=== PATIENT | male | born 1945 | race African-American/Black ===

== ENCOUNTER 2021-07-25 22:49 | Inpatient (IN) | payer OTHER, MEDICAID ==
[~2021-07-25] VITALS: Ht 177.8 cm; Wt 78.5 kg
[2021-07-25 22:49] VITALS: BP_SYST 171
--- NOTE | 2021-07-25 23:05 | NUR ---
ER Dr. Cerda at bedside examining patient.
--- NOTE | 2021-07-25 23:10 | NUR ---
Pt BIB BLS ambulance from [facility] due to generalized weakness and lower abd pain x1 hour prior to ED arrival. Pt arrived to ED in no acute distress, breathing adequately on RA.
[2021-07-26 00:37] LABS: BASOPHILS % (AUTO) 0.3 % (0.0-2.0); EOSINOPHILS % (AUTO) 0.3 % (0.0-4.0); HEMATOCRIT 28.7 % (36-54); HEMOGLOBIN 9.1 g/dL (14.0-18.0); LYMPHOCYTES # (AUTO) 0.6 K/uL (1.0-5.5); LYMPHOCYTES % (AUTO) 9.8 % (20.5-51.5); MEAN CORPUSCULAR HEMOGLOBIN 23 pg (27-31); MEAN CORPUSCULAR HGB CONC 32 % (32-36); MEAN CORPUSCULAR VOLUME 73 fL (79.0-98.0); MONOCYTES # (AUTO) 0.7 K/uL (0.0-1.0); MONOCYTES % (AUTO) 11.2 % (1.7-9.3); NEUTROPHILS % (AUTO) 78.4 % (40.0-70.0); PLATELET COUNT (AUTO) 239 K/uL (130-430); RED BLOOD CELL COUNT(AUTO) 3.94 MIL/uL (4.2-6.2); RED CELL DISTRIBUTION WIDTH 21.7 % (9.0-15.0); WHITE BLOOD COUNT (AUTO) 6.4 K/uL (4.8-10.8)
[2021-07-26 00:44] LABS: ANION GAP 7 (5-15); CALCIUM 8.3 mg/dL (8.4-11.0); CHLORIDE 104 mmol/L (98-107); CREATININE 1.07 mg/dL (0.55-1.30); GLUCOSE 121 mg/dL (70-99); POTASSIUM 3.7 mmol/L (3.5-5.1); SODIUM SERUM 139 mmol/L (136-145); UREA NITROGEN, BLOOD 22 mg/dL (8-21)
[2021-07-26 00:50] LABS: ALANINE AMINOTRANSFERASE 218 U/L (12-78); ALBUMIN 2.5 g/dL (3.4-4.8); ASPARTATE AMINOTRANSFERASE 43 U/L (10-37); TOTAL BILIRUBIN 0.4 mg/dL (0.0-1.0)
--- NOTE | 2021-07-26 02:15 | NUR ---
Urine collected and sent to lab.
[2021-07-26] MEDS ORDERED: cefTRIAXone 1 GM IVPB PREMIX 50 ML IV ONE (02:30)
[2021-07-26 02:50] LABS: BILIRUBIN,URINE NEGATIVE (NEGATIVE); BLOOD, URINE NEGATIVE (NEGATIVE); CLARITY/URINE CLEAR (CLEAR); GLUCOSE,URINE NEGATIVE (NEGATIVE); KETONES,URINE NEGATIVE (NEGATIVE); LEUKOCYTE ESTERASE ,URINE NEGATIVE (NEGATIVE); NITRITE, URINE NEGATIVE (NEGATIVE); PROTEIN URINE 1+ (NEGATIVE)
[2021-07-26 02:52] LABS: COLOR,URINE AMBER (YELLOW)
[2021-07-26] MEDS ORDERED: hydrALAZINE HCL 20 MG/ML VIAL IVP ONE (03:15)
--- NOTE | 2021-07-26 03:25 | NUR ---
Pt requesting meal; meal provided as per diet orders.
[2021-07-26] MEDS ORDERED: hydrALAZINE HCL 20 MG/ML VIAL ONE (03:35)
[2021-07-26] MEDS ORDERED: LORazepam 2 MG/ML VIAL IVP ONE (04:30)
--- NOTE | 2021-07-26 05:26 | NUR ---
Pt resting comfortably in bed, no acute signs of distress.
--- NOTE | 2021-07-26 07:00 | NUR ---
Admit bed requested Patient will be admitted to care of . Admitted to TELE unit. Diagnosis: R LUNG PNA Inpatient (Yes or No) Y Observation (Yes or No) Y Orientation concerns or request close to nursing station (Yes or No) N Covid Status : NEG From Home (Yes or if No enter name of facility) [facility]
--- NOTE | 2021-07-26 07:10 | NUR ---
REPORT RECEIVED FROM KYLAH MOISE FOR CONTINUING CARE
--- NOTE | 2021-07-26 07:30 | NUR ---
Medication reconciliation completed with information provided by [facility]. Any prior medication reconciliation on file was reviewed and corrected.
[2021-07-26] MEDS ORDERED: AMIO200T66 PO (07:33)
[2021-07-26] MEDS ORDERED: SSNOVOLOG SUBCUT (07:33)
[2021-07-26] MEDS ORDERED: DOCU-144 PO (07:33)
[2021-07-26] MEDS ORDERED: PRED20TA PO (07:33)
[2021-07-26] MEDS ORDERED: MAALOX PO (07:33)
[2021-07-26] MEDS ORDERED: LISI-652 PO (07:33)
[2021-07-26] MEDS ORDERED: HYDR-3917 PO (07:33)
[2021-07-26] MEDS ORDERED: NEU300 PO (07:33)
[2021-07-26] MEDS ORDERED: TAMS-11 PO (07:33)
[2021-07-26] MEDS ORDERED: HYDR-4037 PO (07:33)
[2021-07-26] MEDS ORDERED: ONDA4TAB55 PO (07:33)
[2021-07-26] MEDS ORDERED: BACL10TA PO (07:33)
[2021-07-26] MEDS ORDERED: FURO20TA4 PO (07:33)
[2021-07-26] MEDS ORDERED: MOM PO (07:33)
[2021-07-26] MEDS ORDERED: ACET325T53 PO (07:33)
[2021-07-26] MEDS ORDERED: CARV6.2554 PO (07:33)
[2021-07-26] MEDS ORDERED: LOVI40 SQ (07:33)
--- NOTE | 2021-07-26 08:00 | NUR ---
BREAKFAST TRAY PROVIDED TO PT
--- NOTE | 2021-07-26 11:30 | NUR ---
Patient will be admitted to care of DR. ALVARES. Admitted to TELE unit. Will go to room 133B. Belongings list completed. Complete and up to date summary report printed. SBAR report to be given at bedside with opportunity for questions.
--- NOTE | 2021-07-26 11:36 | NUR ---
INITIAL SHIFT REPORT RECEIVED FROM ER NURSE. PT RESTING W CLOSED EYES, TEMP 98.0F; RR 20-SAT 90-93% ON 3L; 140/76 , HR 67
[2021-07-26] MEDS ORDERED: HYDROcodone/ACETAMIN 5-325 MG TAB (NORCO/ VICODIN) PO PRN ×2 (12:00)
[2021-07-26] MEDS ORDERED: hydrALAZINE HCL 10 MG TABLET PO PRN (12:00)
[2021-07-26] MEDS ORDERED: BACLOFEN 10 MG TABLET PO PRN (12:00)
[2021-07-26] MEDS ORDERED: ACETAMINOPHEN 325 MG TABLET PO SCH (12:00)
[2021-07-26] MEDS ORDERED: NALOXONE HCL 0.4 MG/ML AMP (NARCAN) IVP PRN ×3 (12:00)
[2021-07-26] MEDS ORDERED: MILK OF MAGNESIA 30 ML UDC PO PRN (12:00)
[2021-07-26] MEDS ORDERED: ACETAMINOPHEN 325 MG TABLET PO PRN ×2 (12:00→12:15)
[2021-07-26] MEDS ORDERED: LORazepam 2 MG/ML VIAL IVP PRN (12:00)
--- NOTE | 2021-07-26 12:20 | NUR ---
CONSULTATION PAGED/CALLED Reason for Consultation: [] PNA Person Who was Notified: [] KATIE Consulting Physician: [] DR ACOSTA Lead Cargoman Specialty: [] ID Ordering Physician: [] DR BRASHER
--- NOTE | 2021-07-26 13:32 | NUR ---
CONSULTATION PAGED/CALLED Reason for Consultation: [] HYPERTENSION Person Who was Notified: [] JAE Consulting Physician: [] DR Loren BRASHER Deaf And Hard Of Hearing Teacher Specialty: [] CARDIO Ordering Physician: [] DR Derrell BRASHER
[2021-07-26] MEDS ORDERED: ONDANSETRON 4 MG ODT TAB TL PRN (13:45)
[2021-07-26] MEDS ORDERED: MAG-AL HYDROX/SIMETH 30 ML UDC PO PRN (13:45)
[2021-07-26] MEDS ORDERED: NORMAL SALINE 5 ML DISP.SYRIN IVF SCH (14:00)
[2021-07-26] MEDS ORDERED: ANT30 PO (14:14)
[2021-07-26] MEDS: GABAPENTIN 300 MG CAPSULE PO SCH ×3 (15:19→22:57)
[2021-07-26] MEDS: AZITHROMYCIN 500 MG in NS 250 ML IV SCH (15:19)
[2021-07-26] MEDS: cefTRIAXone 1 GM IVPB PREMIX 50 ML IV SCH (15:19)
[2021-07-26] MEDS: NORMAL SALINE 5 ML DISP.SYRIN IVF SCH ×2 (15:20→23:00)
--- NOTE | 2021-07-26 19:24 | NUR ---
ENDORSEMENT BEDSIDE SHIFT REPORT GIVEN TO NIGHT RN FOR CONTINUITY OF CARE
[2021-07-26 21:00] VITALS: BP_SYST 137
[2021-07-26] MEDS: ENOXAPARIN SODIUM 40 MG/0.4 ML SYRINGE SQ SCH (22:55)
[2021-07-26] MEDS: AMIODARONE HCL 200 MG TABLET PO SCH (22:56)
[2021-07-26] MEDS: CARVEDILOL 6.25 MG TABLET (COREG) PO SCH (22:58)
[2021-07-26] MEDS: DOCUSATE SODIUM 100 MG CAPSULE PO SCH (22:58)
[2021-07-26] MEDS: FUROSEMIDE 20 MG TABLET PO SCH (22:58)
[2021-07-26] MEDS: HYDROcodone/ACETAMIN 10-325 MG TAB PO PRN (22:59)
--- NOTE | 2021-07-27 02:12 | NUR ---
PHOTOS PICTURES TAKEN OF WOUND ON RT BUTTOCKS .
--- NOTE | 2021-07-27 05:54 | NUR ---
PHOTOS PICTURES TAKEN OF WOUNDS ON RIGHT LOWER LEG .
[2021-07-27 06:16] LABS: BASOPHILS % (AUTO) 0.3 % (0.0-2.0); EOSINOPHILS # (AUTO) 0.1 K/uL (0.0-0.4); EOSINOPHILS % (AUTO) 1.9 % (0.0-4.0); HEMATOCRIT 29.9 % (36-54); HEMOGLOBIN 9.3 g/dL (14.0-18.0); LYMPHOCYTES # (AUTO) 0.7 K/uL (1.0-5.5); MEAN CORPUSCULAR HEMOGLOBIN 23 pg (27-31); MEAN CORPUSCULAR HGB CONC 31 % (32-36); MEAN CORPUSCULAR VOLUME 74 fL (79.0-98.0); MONOCYTES % (AUTO) 16.3 % (1.7-9.3); NEUTROPHILS # (AUTO) 4.5 K/uL (1.8-7.7); NEUTROPHILS % (AUTO) 70.5 % (40.0-70.0); PLATELET COUNT (AUTO) 276 K/uL (130-430); RED BLOOD CELL COUNT(AUTO) 4.05 MIL/uL (4.2-6.2); RED CELL DISTRIBUTION WIDTH 21.6 % (9.0-15.0); WHITE BLOOD COUNT (AUTO) 6.3 K/uL (4.8-10.8)
[2021-07-27 06:28] LABS: ANION GAP 6 (5-15); CALCIUM 7.8 mg/dL (8.4-11.0); CHLORIDE 106 mmol/L (98-107); CREATININE 1.05 mg/dL (0.55-1.30); GLUCOSE 88 mg/dL (70-99); PHOSPHORUS 3.6 mg/dL (2.7-4.5); POTASSIUM 3.7 mmol/L (3.5-5.1); SODIUM SERUM 141 mmol/L (136-145); UREA NITROGEN, BLOOD 25 mg/dL (8-21)
[2021-07-27] MEDS: GABAPENTIN 300 MG CAPSULE PO SCH ×4 (06:47→23:35)
[2021-07-27] MEDS: NORMAL SALINE 5 ML DISP.SYRIN IVF SCH ×3 (06:48→22:00)
[2021-07-27 08:00] VITALS: BP_SYST 175
--- NOTE | 2021-07-27 08:00 | NUR ---
Opening Notes Patient is laying in bed awake. A/O x4. No apparent distress noted. Vitals as charted. Call light within reach. Safety and fall precautions in place. All needs met.
[2021-07-27] MEDS: predniSONE 20 MG TABLET PO SCH (08:50)
[2021-07-27] MEDS: DOCUSATE SODIUM 100 MG CAPSULE PO SCH ×2 (08:50→21:05)
[2021-07-27] MEDS: FUROSEMIDE 20 MG TABLET PO SCH ×2 (08:50→21:06)
[2021-07-27] MEDS: lisinopriL 5 MG TABLET PO SCH (08:51)
[2021-07-27] MEDS: AMIODARONE HCL 200 MG TABLET PO SCH ×2 (08:51→21:05)
[2021-07-27] MEDS: TAMSULOSIN HCL 0.4 MG CAP PO SCH (08:51)
[2021-07-27] MEDS: CARVEDILOL 6.25 MG TABLET (COREG) PO SCH (08:52)
--- NOTE | 2021-07-27 10:10 | NUR ---
Note Re-assessed patient BP after medication administration. BP currently 148/96, SPO2 94%, HR 126. Call light within reach. Safety and fall precautions in place. All needs met.
[2021-07-27] MEDS ORDERED: VANCOMYCIN HCL 1 GM/NS PREMIX 250 ML IV ONE (10:15)
--- NOTE | 2021-07-27 10:45 | NUR ---
Note Assisted patient with hygiene and linen change. Call light within reach. Safety and fall precautions in place. All needs met.
--- NOTE | 2021-07-27 11:05 | NUR ---
Note Spoke with Yolanda from Radiology. Upcoming abdominal ultrasound complete, will hold patient's lunch. Radiology will come around 1500.
--- NOTE | 2021-07-27 11:30 | NUR ---
New IV inserted Inserted new IV 20g Right lower arm.
[2021-07-27] MEDS: cefTRIAXone 1 GM IVPB PREMIX 50 ML IV SCH (11:44)
[2021-07-27 12:00] VITALS: BP_SYST 110
--- NOTE | 2021-07-27 12:00 | NUR ---
NOTES: called exchange for Dr. Quintana to verify order and info about pt. per nurse Garcia and spoke to anu.
[2021-07-27] MEDS: AZITHROMYCIN 500 MG in NS 250 ML IV SCH (13:16)
--- NOTE | 2021-07-27 13:26 | NUR ---
Received a call from Layne Ortiz BICYCLE RENTAL CLERK-primary care provider for the patient at the [facility] . She stated the patient had just been discharged from 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 She was concerned he continue the treatment for this condition. She was given the phone # for Dr Messer. She also stated if we need assistance with SNF placement we could call [facility] [phone] [id number] discharge /placement duyen.
--- NOTE | 2021-07-27 14:29 | NUR ---
NOTES; called exchange 3x for Dr. Quintana to verify order per nurse Bene and spoke to Parveen.
[2021-07-27 16:00] VITALS: BP_SYST 127
[2021-07-27] MEDS ORDERED: CARVEDILOL 12.5 MG TABLET (COREG) PO ONE (16:15)
--- NOTE | 2021-07-27 16:35 | NUR ---
Dr. Quintana Spoke with Dr. Quintana to receive clarification on antibiotic order due to confusion in the morning. Order clarified and administered as charted.
--- NOTE | 2021-07-27 17:30 | NUR ---
MRSA Swab Completed MRSA swab of nares. Dropped off specimen at laboratory.
--- NOTE | 2021-07-27 18:50 | NUR ---
Closing Note Patient laying in bed awake watching television. No apparent distress noted. Call light within reach. Safety and fall precautions in place. Endorsed care to Ciara assembler 1st shift KYLAH
[2021-07-27 20:00] VITALS: BP_SYST 105
[2021-07-27] MEDS: ENOXAPARIN SODIUM 40 MG/0.4 ML SYRINGE SQ SCH (21:04)
[2021-07-27] MEDS: CARVEDILOL 12.5 MG TABLET (COREG) PO SCH (21:06)
[2021-07-27] MEDS: HYDROcodone/ACETAMIN 10-325 MG TAB PO PRN (23:35)
[2021-07-28] VITALS: BP_SYST 122
[2021-07-28] MEDS: GABAPENTIN 300 MG CAPSULE PO SCH ×3 (05:40→21:45)
[2021-07-28] MEDS: NORMAL SALINE 5 ML DISP.SYRIN IVF SCH ×3 (05:41→21:45)
[2021-07-28 05:58] LABS: BASOPHILS % (AUTO) 0.4 % (0.0-2.0); EOSINOPHILS # (AUTO) 0.1 K/uL (0.0-0.4); EOSINOPHILS % (AUTO) 1.2 % (0.0-4.0); HEMATOCRIT 29.2 % (36-54); HEMOGLOBIN 9.2 g/dL (14.0-18.0); MEAN CORPUSCULAR HEMOGLOBIN 23 pg (27-31); MEAN CORPUSCULAR HGB CONC 31 % (32-36); MEAN CORPUSCULAR VOLUME 74 fL (79.0-98.0); MONOCYTES % (AUTO) 16.9 % (1.7-9.3); NEUTROPHILS % (AUTO) 65.5 % (40.0-70.0); PLATELET COUNT (AUTO) 283 K/uL (130-430); RED BLOOD CELL COUNT(AUTO) 3.96 MIL/uL (4.2-6.2); RED CELL DISTRIBUTION WIDTH 21.6 % (9.0-15.0); WHITE BLOOD COUNT (AUTO) 6.2 K/uL (4.8-10.8)
[2021-07-28 06:11] LABS: ALANINE AMINOTRANSFERASE 127 U/L (12-78); ALBUMIN 2.2 g/dL (3.4-4.8); ANION GAP 7 (5-15); ASPARTATE AMINOTRANSFERASE 23 U/L (10-37); BILIRUBIN,DIRECT 0.2 mg/dL (0.0-0.3); C-REACTIVE PROTEIN QUANT 2.4 mg/dL (0-0.5); CALCIUM 8.2 mg/dL (8.4-11.0); CHLORIDE 108 mmol/L (98-107); CREATININE 1.08 mg/dL (0.55-1.30); GLUCOSE 81 mg/dL (70-99); POTASSIUM 3.9 mmol/L (3.5-5.1); SODIUM SERUM 142 mmol/L (136-145); TOTAL BILIRUBIN 0.3 mg/dL (0.0-1.0); UREA NITROGEN, BLOOD 25 mg/dL (8-21)
[2021-07-28 07:50] VITALS: BP_SYST 138
--- NOTE | 2021-07-28 07:50 | NUR ---
Opening Notes Patient is laying in bed awake watching television. A/O x4. Vitals as charted. No apparent distress noted. Call light within reach. Safety and fall precautions in place. All needs met.
[2021-07-28 08:14] LABS: ERYTHROCYTE SEDIMENTATION RATE 16 MM/HR (0-15)
[2021-07-28] MEDS: predniSONE 20 MG TABLET PO SCH (08:49)
[2021-07-28] MEDS: CARVEDILOL 12.5 MG TABLET (COREG) PO SCH ×2 (08:50→20:45)
[2021-07-28] MEDS: lisinopriL 5 MG TABLET PO SCH (08:50)
[2021-07-28] MEDS: AMIODARONE HCL 200 MG TABLET PO SCH ×2 (08:51→20:46)
[2021-07-28] MEDS: FUROSEMIDE 20 MG TABLET PO SCH ×2 (08:51→20:45)
[2021-07-28] MEDS: DOCUSATE SODIUM 100 MG CAPSULE PO SCH ×2 (08:51→20:46)
[2021-07-28] MEDS: TAMSULOSIN HCL 0.4 MG CAP PO SCH (08:52)
--- NOTE | 2021-07-28 09:00 | NUR ---
Right Forearm IV*
--- NOTE | 2021-07-28 09:00 | NUR ---
Note D/C left forearm IV, no longer patent.
[2021-07-28] MEDS ORDERED: SODIUM CL 3% FOR INHALATION 15 ML VIAL.NEB INH ONE (11:20)
[2021-07-28] MEDS: cefTRIAXone 1 GM IVPB PREMIX 50 ML IV SCH (11:44)
[2021-07-28] MEDS: AZITHROMYCIN 500 MG in NS 250 ML IV SCH (12:30)
[2021-07-28 13:21] VITALS: BP_SYST 136
--- NOTE | 2021-07-28 13:52 | NUR ---
Note Administered back pain medication as charted.
--- NOTE | 2021-07-28 15:54 | NUR ---
Note Paged Dr. Charles Messer regarding additional PRN pain medication for patient.
[2021-07-28 16:51] VITALS: BP_SYST 139
--- NOTE | 2021-07-28 18:34 | NUR ---
Closing Note Patient is sitting up in bed having dinner. No apparent distress noted. Call light within reach. Safety and fall precautions in place. All needs met. Will endorse care to casino shift manager RN.
[2021-07-28 19:50] VITALS: BP_SYST 141
--- NOTE | 2021-07-28 19:50 | NUR ---
Opening notes/Bedside commode Pt AAOx3, VSS. Pt called to use the bathroom. Provided BSC and pt had a large, soft BM. Educated pt to use call button before getting out of bed. Pt verb understanding. IV saline lock R. hand 24G clear and patent. Bed low, locked, siderails up x2, alarm on. To monitor.
[2021-07-28] MEDS: CYCLOBENZAPRINE HCL 10 MG TABLET (FLEXERIL) PO SCH (19:59)
[2021-07-28] MEDS: ENOXAPARIN SODIUM 40 MG/0.4 ML SYRINGE SQ SCH (20:50)
[2021-07-28] MEDS: HYDROcodone/ACETAMIN 10-325 MG TAB PO PRN (21:45)
[2021-07-29 00:48] VITALS: BP_SYST 144
--- NOTE | 2021-07-29 03:18 | NUR ---
Urine sample collected and sent to lab.
[2021-07-29] MEDS: HYDROcodone/ACETAMIN 10-325 MG TAB PO PRN (03:42)
--- NOTE | 2021-07-29 03:44 | NUR ---
Rounds/Pain Pt awake, HR 130's, pt c/o lower back pain. Medicated with [id number] 1 tab PO as needed. Encouraged pt to take slow, deep breaths. Pt verbalized understanding. Call light wtihin reach. Bed low, locked, siderails up x2, alarm on. To monitor.
[2021-07-29] MEDS: GABAPENTIN 300 MG CAPSULE PO SCH ×3 (06:11→21:52)
[2021-07-29] MEDS: NORMAL SALINE 5 ML DISP.SYRIN IVF SCH ×3 (06:11→21:06)
[2021-07-29 06:13] LABS: BASOPHILS % (AUTO) 0.6 % (0.0-2.0); EOSINOPHILS # (AUTO) 0.1 K/uL (0.0-0.4); HEMATOCRIT 28.4 % (36-54); LYMPHOCYTES # (AUTO) 1.3 K/uL (1.0-5.5); LYMPHOCYTES % (AUTO) 21.3 % (20.5-51.5); MEAN CORPUSCULAR HEMOGLOBIN 23 pg (27-31); MEAN CORPUSCULAR HGB CONC 32 % (32-36); MEAN CORPUSCULAR VOLUME 73 fL (79.0-98.0); MONOCYTES # (AUTO) 0.7 K/uL (0.0-1.0); NEUTROPHILS % (AUTO) 65.1 % (40.0-70.0); PLATELET COUNT (AUTO) 316 K/uL (130-430); RED BLOOD CELL COUNT(AUTO) 3.87 MIL/uL (4.2-6.2); RED CELL DISTRIBUTION WIDTH 22.1 % (9.0-15.0); WHITE BLOOD COUNT (AUTO) 6.2 K/uL (4.8-10.8)
[2021-07-29 06:30] LABS: ANION GAP 9 (5-15); CALCIUM 8.2 mg/dL (8.4-11.0); CHLORIDE 107 mmol/L (98-107); CREATININE 1.32 mg/dL (0.55-1.30); GLUCOSE 83 mg/dL (70-99); POTASSIUM 4.1 mmol/L (3.5-5.1); SODIUM SERUM 141 mmol/L (136-145); UREA NITROGEN, BLOOD 27 mg/dL (8-21)
--- NOTE | 2021-07-29 06:30 | NUR ---
Closing notes Pt awake, no s/s distress noted. Call light within reach. Bed low, locked, siderails up x2, alarm on. Safety maintained. To endorse to AM nurse.
[2021-07-29 07:57] LABS: C-REACTIVE PROTEIN QUANT 2.1 mg/dL (0-0.5)
--- NOTE | 2021-07-29 08:00 | NUR ---
Initial notes Awake, denies any pain or shortness of breath of breath. afebrile. On oxygen 2L, on and off. Safety precaution observed. call light within reach. enc to call for help as needed.
[2021-07-29 08:03] VITALS: BP_SYST 156
[2021-07-29] MEDS: predniSONE 20 MG TABLET PO SCH (08:16)
[2021-07-29] MEDS: CYCLOBENZAPRINE HCL 10 MG TABLET (FLEXERIL) PO SCH ×3 (08:16→21:04)
[2021-07-29] MEDS: TAMSULOSIN HCL 0.4 MG CAP PO SCH (08:16)
[2021-07-29] MEDS: FUROSEMIDE 20 MG TABLET PO SCH ×2 (08:16→21:04)
[2021-07-29] MEDS: DOCUSATE SODIUM 100 MG CAPSULE PO SCH ×2 (08:16→21:05)
[2021-07-29] MEDS: lisinopriL 5 MG TABLET PO SCH (08:16)
[2021-07-29] MEDS: CARVEDILOL 12.5 MG TABLET (COREG) PO SCH ×2 (08:17→21:05)
[2021-07-29] MEDS: AMIODARONE HCL 200 MG TABLET PO SCH ×2 (08:17→21:06)
[2021-07-29 10:36] LABS: ERYTHROCYTE SEDIMENTATION RATE 23 MM/HR (0-15)
--- NOTE | 2021-07-29 11:00 | NUR ---
notes resting bed, denies any pain, has some short of breath. Instructed not to take out oxygen.
[2021-07-29] MEDS: cefTRIAXone 1 GM IVPB PREMIX 50 ML IV SCH (12:43)
[2021-07-29] MEDS: AZITHROMYCIN 500 MG in NS 250 ML IV SCH (12:43)
[2021-07-29 12:54] VITALS: BP_SYST 138
[2021-07-29 16:21] VITALS: BP_SYST 138
[2021-07-29] MEDS ORDERED: BALSAM PERU/CASTOR OIL 56.7 GM OINT...G. TP ONE (16:30)
--- NOTE | 2021-07-29 16:44 | NUR ---
WOUND EVALUATION: Wound Consult received from Dr. Charles Messer. Thank you, Dr. Messer, for the consult. Patient received in a Wilfredo Bed with a mattress, awake, alert, and oriented. Patient is unable to turn independently. Remigio Score is a 17 (was a 14 yesterday). Past Medical History: Diabetes Mellitus, Hypertension, CHF. Recent Labs: WBC 6.2, RBC 3.87, hemoglobin 9.0, hematocrit 28.4, ESR 23, BUN 27, creatinine 1.32, calcium 8.2, C-reactive protein 2.1, BNP 1420, albumin 2.2. Microbiology: Blood culture results x2 in progress. MRSA screen results negative. Sputum culture results contaminated with saliva, retest was suggested. Intrinsic factors that delay wound healing: Anemia, Diabetes Mellitus, Hypoalbuminemia, CHF. Extrinsic factors that delay wound healing: Decreased mobility. Wound Assessment: 1. 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 Wound bed has 95% yellow tissue, 5% pink tissue. No odor, small yellow drainage. Periwound intact. Wound measures 2.3 cm x 1.0 cm. Extremity is cool to touch, and has no hair. 2. 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 Wound bed has 100% yellow tissue. No odor, scant yellow drainage. Periwound intact. Wound measures 0.3 cm x 0.4 cm. Extremity is cool to touch, and has no hair. 3. 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 Wound bed has 100% yellow tissue. No odor, scant yellow drainage. Periwound intact. Wound measures 2.5 cm x 0.8 cm. Extremity is cool to touch, and has no hair. 4. 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 Wound bed has 95% yellow tissue, 5% pink tissue. No odor, scant yellow drainage. Periwound intact. Wound measures 2.5 cm x 3.6 cm. Foot is cool to touch, and has no hair. 5. 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 Wound bed has 95% yellow tissue, 5% pink tissue. No odor, scant yellow drainage. Periwound intact. Wound measures 0.5 cm x 1.8 cm. Foot is cool to touch, and has no hair. Recommend: Cleanse wounds with normal saline. Apply moisture barrier cream to brandee-wounds. Apply Venelex ointment to wound beds. Cover with foam dressings. Perform wound care daily, and as needed for dressing soiling or dislodgement. 6. Right Buttock: Wound of unknown etiology, present on admission. Wound bed has 100% pink tissue. Surrounding tissue on left lateral aspect of wound has black-colored tissue, possibly from prior deep tissue injury. Wound measures 0.5 cm x 1.2 cm. Recommend: Cleanse wound with normal saline. Apply moisture barrier cream to wound bed. Cover with 4 x 4 foam dressing. Perform site care daily, and as needed for dressing soiling or dislodgment. Also recommend: Reposition patient side to side only every 2 hours with pillow support and off-load pressure areas with pillows for pressure re-distribution. Offload, elevate and float bilateral heels with pillows. Perform skin care and monitor skin integrity Q shift. Use moisture barrier cream on buttocks and other moisture susceptible areas QID and as needed for soiling.
--- NOTE | 2021-07-29 18:13 | NUR ---
Notes- eating dinner. no distress. call light within reach. enc to call for help as needed. will endorse.
[2021-07-29 20:15] VITALS: BP_SYST 148
--- NOTE | 2021-07-29 20:15 | NUR ---
Opening notes Pt awake, resting in bed, no s/s distress noted. Pt refused O2 at this time, O2 sat 100% on room air. IV saline lock R. hand 24 flushes well with NS. Call light within reach. Bed low, locked, siderails up x2. To monitor.
[2021-07-29] MEDS: ENOXAPARIN SODIUM 40 MG/0.4 ML SYRINGE SQ SCH (21:09)
[2021-07-30 00:10] VITALS: BP_SYST 144
--- NOTE | 2021-07-30 03:15 | NUR ---
Pain Pt c/o pain R. leg. Offered Grenola 10mg 1 tab, but pt refused and asked about IV. Educated pt that he received the same pain pill yesterday. No distress noted. Linens/gown changed. Grenola returned to [facility].
--- NOTE | 2021-07-30 04:40 | NUR ---
Shannon Messer, awaiting callback.
[2021-07-30] MEDS ORDERED: MORPHINE 2 MG/ML INJ. SYRINGE IVP ONE (06:00)
--- NOTE | 2021-07-30 06:00 | NUR ---
HIGH ALERT NOTE: Called Dr. Messer back at [phone] identified within the medical roster to verify physician authenticity.
--- NOTE | 2021-07-30 06:05 | NUR ---
CXR at bedside.
[2021-07-30] MEDS ORDERED: MORPHINE 2 MG/ML INJ. SYRINGE ONE (06:23)
[2021-07-30] MEDS: GABAPENTIN 300 MG CAPSULE PO SCH (06:24)
[2021-07-30] MEDS: NORMAL SALINE 5 ML DISP.SYRIN IVF SCH (06:24)
--- NOTE | 2021-07-30 06:26 | NUR ---
Closing notes/Morphine Pt alert, awake, medicated with Morphine 1mg IVP x1 for c/o 11/13 R. leg pain on R. hand IV 24G, clear and patent. Optifoam dressings C/D/I. Pt refuse O2, O2 sat 97-100% on room air, no sob noted. Call light within reach. Bed low, locked, siderails up x2. Safety maintained. To endorse to AM nurse.
[2021-07-30 06:35] LABS: BASOPHILS % (AUTO) 0.9 % (0.0-2.0); EOSINOPHILS # (AUTO) 0.1 K/uL (0.0-0.4); EOSINOPHILS % (AUTO) 2.3 % (0.0-4.0); HEMATOCRIT 28.6 % (36-54); HEMOGLOBIN 8.9 g/dL (14.0-18.0); LYMPHOCYTES % (AUTO) 21.6 % (20.5-51.5); MEAN CORPUSCULAR HEMOGLOBIN 23 pg (27-31); MEAN CORPUSCULAR HGB CONC 31 % (32-36); MEAN CORPUSCULAR VOLUME 75 fL (79.0-98.0); MONOCYTES # (AUTO) 0.6 K/uL (0.0-1.0); MONOCYTES % (AUTO) 12.5 % (1.7-9.3); NEUTROPHILS # (AUTO) 2.9 K/uL (1.8-7.7); NEUTROPHILS % (AUTO) 62.7 % (40.0-70.0); PLATELET COUNT (AUTO) 296 K/uL (130-430); RED BLOOD CELL COUNT(AUTO) 3.83 MIL/uL (4.2-6.2); WHITE BLOOD COUNT (AUTO) 4.7 K/uL (4.8-10.8)
[2021-07-30 07:12] LABS: ALANINE AMINOTRANSFERASE 116 U/L (12-78); ALBUMIN 2.6 g/dL (3.4-4.8); ANION GAP 6 (5-15); ASPARTATE AMINOTRANSFERASE 25 U/L (10-37); C-REACTIVE PROTEIN QUANT 1.6 mg/dL (0-0.5); CALCIUM 8.9 mg/dL (8.4-11.0); CHLORIDE 109 mmol/L (98-107); CREATININE 1.37 mg/dL (0.55-1.30); GLUCOSE 102 mg/dL (70-99); POTASSIUM 4.9 mmol/L (3.5-5.1); SODIUM SERUM 140 mmol/L (136-145); TOTAL BILIRUBIN 0.4 mg/dL (0.0-1.0); UREA NITROGEN, BLOOD 31 mg/dL (8-21)
[2021-07-30 07:47] LABS: RED CELL DISTRIBUTION WIDTH 22.2 % (9.0-15.0)
[2021-07-30 08:00] VITALS: BP_SYST 153
--- NOTE | 2021-07-30 08:00 | NUR ---
Initial notes Eating breakfast, pain is controlled. on room air. saturating 95%. No distress. Call light within reach. enc to call for help as needed.
[2021-07-30] MEDS: FUROSEMIDE 20 MG TABLET PO SCH (08:20)
[2021-07-30] MEDS: CYCLOBENZAPRINE HCL 10 MG TABLET (FLEXERIL) PO SCH (08:20)
[2021-07-30] MEDS: DOCUSATE SODIUM 100 MG CAPSULE PO SCH (08:20)
[2021-07-30] MEDS: predniSONE 20 MG TABLET PO SCH (08:21)
[2021-07-30] MEDS: TAMSULOSIN HCL 0.4 MG CAP PO SCH (08:21)
[2021-07-30] MEDS: AMIODARONE HCL 200 MG TABLET PO SCH (08:21)
[2021-07-30] MEDS: lisinopriL 5 MG TABLET PO SCH (08:21)
[2021-07-30] MEDS: CARVEDILOL 12.5 MG TABLET (COREG) PO SCH (08:22)
[2021-07-30] MEDS ORDERED: BALSAM PERU/CASTOR OIL 56.7 GM OINT...G. TP SCH (09:00)
[2021-07-30 10:57] LABS: ERYTHROCYTE SEDIMENTATION RATE 23 MM/HR (0-15)
--- NOTE | 2021-07-30 11:30 | NUR ---
NOTES- RESTING, ON ROOM AIR, PAIN IS CONTROLLED. NO DISTRESS.
[2021-07-30 11:34] VITALS: BP_SYST 137
[2021-07-30] MEDS ORDERED: DOXY100T2 PO (11:38)
[2021-07-30] MEDS ORDERED: COR12.5 PO (11:38)
[2021-07-30] MEDS: cefTRIAXone 1 GM IVPB PREMIX 50 ML IV SCH (11:39)
--- NOTE | 2021-07-30 12:00 | NUR ---
NAHEED: PT HAS ORDER FOR DISCHARGE BACK TO [facility], CALLED [facility] , SPOKE WITH SOCO FARFAN, STATES SHE WILL FAX OVER PT INFO TO [facility] FOR AUTH. Addendum: 07/30/21 at 1414 by Adelita Aguila RN CALLED [facility] SPOKE WITH YOBANY, PT HAS BEEN APPROVED FOR RETURN TO [facility] RM[id number], [facility] WILL ARRANGE FOR TRANSPORTATION, NUMBER FOR REPORT .
[2021-07-30] MEDS: AZITHROMYCIN 500 MG in NS 250 ML IV SCH (12:18)
--- NOTE | 2021-07-30 13:45 | NUR ---
Nutrition Note Pt is due for high risk initial Nutrition Assessment tomorrow, 07/31 d/t Nutrition Consult received for arterial ulcers 07/29/[address] spoke w/ pt's primary RN at [facility], and she reported that pt is pending D/C back to SNF today. RD rounded to pt's bedside -- pt had no nutrition-related concerns. Nutrition Assessment deferred. RD offered nutrition education. Pt accepted. Please refer to interdisciplinary teaching record for details.
[2021-07-30 14:02] VITALS: BP_SYST 135
--- NOTE | 2021-07-30 14:24 | NUR ---
NOTES- PT WILL BE RECEIVABLE EXECUTIVE AT 1430. THIS NURSE BEEN TRYING TO CALL AND GIVE REPORT AT [facility]. CALLED 5 TIMES. AND DONAL AT THE DESK BEEN TRANSFERRING THE CALL BUT NOBODY'S ANSWERING THE PHONE.
--- NOTE | 2021-07-30 15:55 | NUR ---
discharge to [facility] report given to fran at the facility after multiple attempts to call and give report. Patient is awake and alert, has short of breath at times, o2 sat is 95% in room air. discharge packet given to ambulance staff. No belongings except for his ring that his wearing. No distress. IVL removed.
== END 2021-07-30 15:50 | DRG 871 ==
LOC: SED 22:49 → STU 07-26 03:25
PROVIDERS: ADMIT Preventive Medicine Preventive Medicine/Occupational Environmental Medicine; ATTEND Preventive Medicine Preventive Medicine/Occupational Environmental Medicine
DX: A41.9 Sepsis, unspecified organism (principal); J18.9 Pneumonia, unspecified organism; J96.01 Acute respiratory failure with hypoxia; E43 Unspecified severe protein-calorie malnutrition; J15.9 Unspecified bacterial pneumonia; D64.9 Anemia, unspecified; E88.09 Other disorders of plasma-protein metabolism, not elsewhere classified; E11.65 Type 2 diabetes mellitus with hyperglycemia; E83.51 Hypocalcemia; R74.01 Elevation of levels of liver transaminase levels; I34.0 Nonrheumatic mitral (valve) insufficiency; I36.1 Nonrheumatic tricuspid (valve) insufficiency; I27.21 Secondary pulmonary arterial hypertension; E83.52 Hypercalcemia; E83.42 Hypomagnesemia; Y95 Nosocomial condition; Z20.822 Contact with and (suspected) exposure to COVID-19; K76.89 Other specified diseases of liver; I11.0 Hypertensive heart disease with heart failure; I50.9 Heart failure, unspecified; E66.9 Obesity, unspecified; Z95.0 Presence of cardiac pacemaker; Z68.24 Body mass index [BMI] 24.0-24.9, adult
CPT/HCPCS: 36415; 71045; 76700-TC; 80048; 80053; 80076; 81003; 82962; 83605; 83735; 83880; 84100; 85025; 85651-TC; 86140; 86738; 87040; 87070-TC; 87081; 87205-TC; 87449; 93005; 93306; 94640; 96365; 96375; 97116-GP; 97530-GP; 99285; G0378; J0360; J0456; J0696; J1650; J1956; J2060; J2270; J3370; J7050; J7131; J7512